=== PATIENT | female | born 1965 | race Caucasian/White ===

== ENCOUNTER → 2016-05-04 | Outpatient (CLI) | payer MEDICARE, MEDICAID ==
[~2016-05-04] MED LIST: ADVAIR IH; ALBUTEROL0.09 MG/A4 IH; MS CONTIN 330 MG/TAB PO; PERCOCET 325 MG1 TAB PO; PRILOSEC 20MG20 MG PO; SOMA350 MG PO; THEOPHYLLINE200 M3 PO; VALIUM10 MG PO; VITAMIN D50000 I1 PO
== END ==
LOC: RAD 16:11
DX: M25.511 Pain in right shoulder (principal); R76.8 Other specified abnormal immunological findings in serum

== ENCOUNTER → 2016-09-21 | Outpatient (CLI) | payer MEDICARE, MEDICAID ==
[2013-08-26 16:56] VITALS: BP 130/88
== END ==
LOC: LAB 15:07
DX: R76.8 Other specified abnormal immunological findings in serum (principal)

== ENCOUNTER → 2016-10-19 | Outpatient (CLI) | payer MEDICARE, MEDICAID ==
[2013-08-26 16:56] VITALS: BP 130/88
== END ==
LOC: LAB 16:24
DX: R76.8 Other specified abnormal immunological findings in serum (principal)

== ENCOUNTER 2016-12-11 18:40 | Observation (INO) | payer MEDICARE, MEDICAID ==
[~2016-12-11] VITALS: Ht 162.6 cm; Wt 67.0 kg
[2016-12-11] MEDS ORDERED: PERCOCET 325 MG1 TA5 PO (20:07)
[2016-12-11] MEDS ORDERED: MS CONTIN30 MG PO (20:09)
[2016-12-11] MEDS ORDERED: SOMA350 M1 PO (20:10)
[2016-12-11] MEDS ORDERED: VALIUM 10MG10 MG/TAB PO (20:11)
[2016-12-11] MEDS ORDERED: VITAMIN D50000 I2 PO (20:21)
[2016-12-11] MEDS ORDERED: CELEXA 20MG20 MG/TA1 PO (20:21)
[2016-12-11] MEDS ORDERED: CLARITIN 1010 MG/TAB PO (20:23)
[2016-12-11] MEDS ORDERED: QUALITY CHOICE325 MG PO (20:25)
[2016-12-11] MEDS ORDERED: RT ALBUTEROL CC18 GM IH (20:29)
[2016-12-11] MEDS ORDERED: COLACE100 M1 PO (20:36)
[2016-12-11] MEDS ORDERED: KEFLEX250 M1 PO (20:37)
[2016-12-11] MEDS ORDERED: LIDOCAINE HCL 330 M1 TP (20:52)
[2016-12-11 21:34] VITALS: BP 144/70
[2016-12-11 21:49] VITALS: BP 144/70
[2016-12-11 23:00] VITALS: BP 132/72
[2016-12-12 05:27] LABS: PH-URINE 7.5 (5.0 - 8.0); URINE APPEARANCE CLEAR; URINE BILIRUBIN NEGATIVE (NEGATIVE); URINE BLOOD NEGATIVE (NEGATIVE); URINE COLOR YELLOW; URINE GLUCOSE NEGATIVE (NEGATIVE); URINE KETONE NEGATIVE (NEGATIVE); URINE LEUKOCYTE ESTERASE 1+ (NEGATIVE); URINE NITRATE NEGATIVE (NEGATIVE); URINE PROTEIN(semi-quant) NEGATIVE (NEGATIVE); URINE UROBILINOGEN NORMAL (NORMAL)
[2016-12-12 06:23] VITALS: BP 128/70
[2016-12-12 08:56] LABS: EOS # 0.2 (0.04-0.40); HEMATOCRIT 38.5 % (37.0-47.0); HEMOGLOBIN 12.6 g/dL (12.5-16.0); LYMPH# 1.3 (1.50-4.00); MEAN CELL VOLUME 97 fl (78-100); MEAN CORPUSCULAR HEMOGLOBIN 32 pg (27-31); MEAN CORPUSCULAR HGB CONC 33 g/dL (33-37); MEAN PLATELET VOLUME 8.8 fl (7.4-10.4); MONO # 0.4 (0.20-0.80); NEU # 3.1 (1.40-6.50); PLATELET COUNT 285 K/mm3 (130-400); RED BLOOD COUNT 3.98 M/mm3 (4.10-5.30); RED CELL DISTRIBUTION WIDTH 12.7 % (11.5-14.5)
[2016-12-12 09:04] LABS: BUN/CREATININE RATIO 12.4 (6.0-26.0); CALCIUM 9.4 mg/dL (8.4-10.2); POTASSIUM 3.8 mmol/L (3.6-5.0); TOTAL BILIRUBIN 0.5 mg/dL (0.2-1.3); TOTAL PROTEIN 7.8 g/dL (6.3-8.2)
[2016-12-12 11:00] VITALS: BP 122/72
[2016-12-12 15:06] VITALS: BP 115/71
[2016-12-12] MEDS ORDERED: MACROBID 100 M100 MG PO (17:36)
[2016-12-12 18:31] VITALS: BP 117/74
== END 2016-12-12 19:42 | disposition home or self-care (01) ==
LOC: ED 18:40 → MED/SURG 19:51
PROVIDERS: Physician Assistant; ADMIT Nurse Practitioner Primary Care
DX: N99.89 Other postprocedural complications and disorders of genitourinary system (principal); R33.8 Other retention of urine; K59.00 Constipation, unspecified; G89.29 Other chronic pain; M54.9 Dorsalgia, unspecified; Z79.891 Long term (current) use of opiate analgesic; N39.0 Urinary tract infection, site not specified; G89.18 Other acute postprocedural pain; R10.2 Pelvic and perineal pain; Z90.710 Acquired absence of both cervix and uterus; F41.9 Anxiety disorder, unspecified; F32.9 Major depressive disorder, single episode, unspecified; F17.210 Nicotine dependence, cigarettes, uncomplicated
CPT/HCPCS: G0378

== ENCOUNTER 2016-12-28 23:03 | Emergency (ER) | payer MEDICARE, MEDICAID ==
[~2016-12-28] VITALS: Ht 160 cm; Wt 65.9 kg
[~2016-12-28 23:03] MED LIST changes: +CELEXA 20MG20 MG/TA1 PO; +CLARITIN 1010 MG/TAB PO; +COLACE100 M1 PO; +KEFLEX250 M1 PO; +LIDOCAINE HCL 330 M1 TP; +MACROBID 100 M100 MG PO; +MS CONTIN30 MG PO; +PERCOCET 325 MG1 TA5 PO; +QUALITY CHOICE325 MG PO; +RT ALBUTEROL CC18 GM IH; +SOMA350 M1 PO; +VALIUM 10MG10 MG/TAB PO; +VITAMIN D50000 I2 PO
[2016-12-29 00:30] LABS: EOS # 0.3 (0.04-0.40); HEMATOCRIT 35.7 % (37.0-47.0); LYMPH# 2.7 (1.50-4.00); MEAN CELL VOLUME 98 fl (78-100); MEAN CORPUSCULAR HEMOGLOBIN 33 pg (27-31); MEAN CORPUSCULAR HGB CONC 34 g/dL (33-37); MEAN PLATELET VOLUME 8.4 fl (7.4-10.4); MONO # 0.7 (0.20-0.80); NEU # 5.1 (1.40-6.50); PLATELET COUNT 288 K/mm3 (130-400); RED BLOOD COUNT 3.66 M/mm3 (4.10-5.30); RED CELL DISTRIBUTION WIDTH 13.3 % (11.5-14.5); WHITE BLOOD COUNT 8.7 K/mm3 (4.8-10.8)
[2016-12-29 00:41] LABS: ALBUMIN 3.6 g/dL (3.5-5.0); BUN/CREATININE RATIO 12.8 (6.0-26.0); CALCIUM 8.6 mg/dL (8.4-10.2); POTASSIUM 3.5 mmol/L (3.6-5.0); TOTAL BILIRUBIN 0.4 mg/dL (0.2-1.3); TOTAL PROTEIN 6.9 g/dL (6.3-8.2)
[2016-12-29 02:41] LABS: URINE APPEARANCE CLOUDY; URINE COLOR YELLOW
[2016-12-29 02:42] LABS: URINE BILIRUBIN NEGATIVE (NEGATIVE); URINE BLOOD 250 ery/uL (NEGATIVE); URINE GLUCOSE NEGATIVE (NEGATIVE); URINE KETONE NEGATIVE (NEGATIVE); URINE LEUKOCYTE ESTERASE 2+ (NEGATIVE); URINE NITRATE POSITIVE (NEGATIVE); URINE PROTEIN(semi-quant) NEGATIVE (NEGATIVE); URINE UROBILINOGEN NORMAL (NORMAL); URINE WBC >50 /hpf (0-3)
[2016-12-29] MEDS ORDERED: LEVAQUIN 5500 MG/TA1 PO (03:09)
[2016-12-29 04:00] VITALS: BP 104/82
== END 2016-12-29 04:00 | disposition home or self-care (01) ==
LOC: ED 23:03
PROVIDERS: Physician Assistant
DX: N39.0 Urinary tract infection, site not specified (principal); K59.00 Constipation, unspecified; G89.29 Other chronic pain; E87.1 Hypo-osmolality and hyponatremia; E87.6 Hypokalemia; Z88.6 Allergy status to analgesic agent; Z88.1 Allergy status to other antibiotic agents; Z88.2 Allergy status to sulfonamides; Z88.8 Allergy status to other drugs, medicaments and biological substances; Z86.19 Personal history of other infectious and parasitic diseases

== ENCOUNTER → 2017-04-05 | Outpatient (CLI) | payer MEDICARE, MEDICAID ==
[~2017-04-05] MED LIST changes: +LEVAQUIN 5500 MG/TA1 PO
[2017-04-05 15:58] LABS: EOS # 0.1 (0.04-0.40); EOS % 0.9 % (1.0-5.0); HEMATOCRIT 45.5 % (37.0-47.0); LYMPH# 2.3 (1.50-4.00); MEAN CELL VOLUME 94 fl (78-100); MEAN CORPUSCULAR HEMOGLOBIN 31 pg (27-31); MEAN CORPUSCULAR HGB CONC 33 g/dL (33-37); MEAN PLATELET VOLUME 8.8 fl (7.4-10.4); MONO # 0.5 (0.20-0.80); NEU # 4.8 (1.40-6.50); PLATELET COUNT 308 K/mm3 (130-400); RED BLOOD COUNT 4.84 M/mm3 (4.10-5.30); RED CELL DISTRIBUTION WIDTH 13.4 % (11.5-14.5); WHITE BLOOD COUNT 7.7 K/mm3 (4.8-10.8)
[2017-04-05 16:08] LABS: BUN/CREATININE RATIO 20.2 (6.0-26.0); POTASSIUM 4.1 mmol/L (3.6-5.0); TOTAL PROTEIN 8.6 g/dL (6.3-8.2)
[2017-04-05 16:18] LABS: ALBUMIN 4.5 g/dL (3.5-5.0); CALCIUM 9.5 mg/dL (8.4-10.2); TOTAL BILIRUBIN 0.2 mg/dL (0.2-1.3)
== END ==
LOC: LAB 15:43
PROVIDERS: Internal Medicine
DX: G43.709 Chronic migraine without aura, not intractable, without status migrainosus (principal); D50.8 Other iron deficiency anemias; E78.2 Mixed hyperlipidemia; M85.80 Other specified disorders of bone density and structure, unspecified site; Z88.1 Allergy status to other antibiotic agents; Z88.2 Allergy status to sulfonamides; Z88.8 Allergy status to other drugs, medicaments and biological substances

== ENCOUNTER → 2017-07-26 | Outpatient (CLI) | payer MEDICARE, MEDICAID | LOC: RAD 14:58 | DX: M19.042 Primary osteoarthritis, left hand (principal); Z98.890 Other specified postprocedural states ==

== ENCOUNTER → 2017-12-14 | Outpatient (CLI) | payer MEDICARE, MEDICAID ==
[2017-12-14 14:25] LABS: EOS # 0.1 (0.04-0.40); EOS % 1.2 % (1.0-5.0); HEMATOCRIT 44.1 % (37.0-47.0); HEMOGLOBIN 14.8 g/dL (12.5-16.0); MEAN CELL VOLUME 94 fl (78-100); MEAN CORPUSCULAR HEMOGLOBIN 32 pg (27-31); MEAN CORPUSCULAR HGB CONC 34 g/dL (33-37); MEAN PLATELET VOLUME 8.7 fl (7.4-10.4); MONO # 0.6 (0.20-0.80); NEU # 5.4 (1.40-6.50); PLATELET COUNT 321 K/mm3 (130-400); RED CELL DISTRIBUTION WIDTH 12.8 % (11.5-14.5); WHITE BLOOD COUNT 8.1 K/mm3 (4.8-10.8)
[2017-12-14 14:38] LABS: ALBUMIN 4.5 g/dL (3.5-5.0); CALCIUM 9.6 mg/dL (8.4-10.2); POTASSIUM 4.4 mmol/L (3.6-5.0); TOTAL BILIRUBIN 0.3 mg/dL (0.2-1.3); TOTAL PROTEIN 8.3 g/dL (6.3-8.2)
[2017-12-14 16:11] LABS: ERYTHROCYTE SEDIMENTATION RATE 5 mm/hr (0-30)
== END ==
LOC: LAB 14:06
PROVIDERS: Internal Medicine
DX: Z12.11 Encounter for screening for malignant neoplasm of colon (principal); D50.9 Iron deficiency anemia, unspecified; E78.2 Mixed hyperlipidemia; M85.80 Other specified disorders of bone density and structure, unspecified site; G43.909 Migraine, unspecified, not intractable, without status migrainosus; M79.671 Pain in right foot; R20.2 Paresthesia of skin

== ENCOUNTER → 2018-05-21 | Outpatient (CLI) | payer MEDICARE, MEDICAID ==
[2018-05-21 14:48] LABS: EOS # 0.2 (0.04-0.40); EOS % 2.3 % (1.0-5.0); HEMATOCRIT 47.1 % (37.0-47.0); HEMOGLOBIN 15.2 g/dL (12.5-16.0); LYMPH# 2.2 (1.50-4.00); MEAN CELL VOLUME 93 fl (78-100); MEAN CORPUSCULAR HEMOGLOBIN 30 pg (27-31); MEAN CORPUSCULAR HGB CONC 32 g/dL (33-37); MEAN PLATELET VOLUME 8.4 fl (7.4-10.4); MONO # 0.6 (0.20-0.80); NEU # 5.2 (1.40-6.50); PLATELET COUNT 333 K/mm3 (130-400); RED BLOOD COUNT 5.08 M/mm3 (4.10-5.30); RED CELL DISTRIBUTION WIDTH 13.3 % (11.5-14.5); WHITE BLOOD COUNT 8.2 K/mm3 (4.8-10.8)
[2018-05-21 15:07] LABS: ALBUMIN 4.7 g/dL (3.5-5.0); CALCIUM 9.3 mg/dL (8.4-10.2); POTASSIUM 4.3 mmol/L (3.6-5.0); TOTAL BILIRUBIN 0.3 mg/dL (0.2-1.3); TOTAL PROTEIN 8.7 g/dL (6.3-8.2)
[2018-05-21 15:30] LABS: PROTHROMBIN TIME 9.4 SECONDS (9.0-12.0)
== END ==
LOC: LAB 14:28
PROVIDERS: Physician Assistant
DX: Z12.11 Encounter for screening for malignant neoplasm of colon (principal); R74.8 Abnormal levels of other serum enzymes; K62.5 Hemorrhage of anus and rectum; B18.2 Chronic viral hepatitis C

== ENCOUNTER → 2018-07-26 | Outpatient (CLI) | payer MEDICARE, MEDICAID | LOC: RAD 15:23 | DX: Z12.31 Encounter for screening mammogram for malignant neoplasm of breast (principal); M19.032 Primary osteoarthritis, left wrist; M25.571 Pain in right ankle and joints of right foot ==

== ENCOUNTER → 2018-09-20 | Outpatient (CLI) | payer MEDICARE, MEDICAID ==
[2018-09-20 15:54] LABS: EOS # 0.1 (0.04-0.40); EOS % 1.1 % (1.0-5.0); HEMATOCRIT 43.9 % (37.0-47.0); HEMOGLOBIN 14.4 g/dL (12.5-16.0); LYMPH# 1.8 (1.50-4.00); MEAN CELL VOLUME 94 fl (78-100); MEAN CORPUSCULAR HEMOGLOBIN 31 pg (27-31); MEAN CORPUSCULAR HGB CONC 33 g/dL (33-37); MEAN PLATELET VOLUME 9.1 fl (7.4-10.4); MONO # 0.4 (0.20-0.80); PLATELET COUNT 273 K/mm3 (130-400); RED BLOOD COUNT 4.65 M/mm3 (4.10-5.30); RED CELL DISTRIBUTION WIDTH 14.1 % (11.5-14.5); WHITE BLOOD COUNT 7.2 K/mm3 (4.8-10.8)
[2018-09-20 15:55] LABS: ALBUMIN 4.5 g/dL (3.5-5.0); POTASSIUM 3.9 mmol/L (3.5-5.1)
[2018-09-20 15:57] LABS: CALCIUM 9.8 mg/dL (8.3-10.5)
[2018-09-20 15:58] LABS: TOTAL PROTEIN 8.9 g/dL (6.4-8.3)
[2018-09-20 16:00] LABS: TOTAL BILIRUBIN 0.2 mg/dL (0.2-1.2)
[2018-09-20 17:51] LABS: ERYTHROCYTE SEDIMENTATION RATE 6 mm/hr (0-30)
== END ==
LOC: RAD 14:51
PROVIDERS: Internal Medicine
DX: M25.511 Pain in right shoulder (principal); M79.671 Pain in right foot; G43.709 Chronic migraine without aura, not intractable, without status migrainosus; M85.80 Other specified disorders of bone density and structure, unspecified site; D50.8 Other iron deficiency anemias; R20.2 Paresthesia of skin; E78.2 Mixed hyperlipidemia

== ENCOUNTER → 2019-02-07 | Outpatient (CLI) | payer MEDICARE, MEDICAID ==
[2019-02-07 15:39] LABS: EOS # 0.3 (0.04-0.40); EOS % 3.1 % (1.0-5.0); HEMATOCRIT 45.1 % (37.0-47.0); HEMOGLOBIN 14.6 g/dL (12.5-16.0); LYMPH# 3.1 (1.50-4.00); MEAN CELL VOLUME 94 fl (78-100); MEAN CORPUSCULAR HEMOGLOBIN 31 pg (27-31); MEAN CORPUSCULAR HGB CONC 32 g/dL (33-37); MEAN PLATELET VOLUME 8.8 fl (7.4-10.4); MONO # 0.7 (0.20-0.80); PLATELET COUNT 365 K/mm3 (130-400); RED BLOOD COUNT 4.78 M/mm3 (4.10-5.30); RED CELL DISTRIBUTION WIDTH 12.9 % (11.5-14.5)
[2019-02-07 15:45] LABS: POTASSIUM 3.6 mmol/L (3.5-5.1)
[2019-02-07 15:46] LABS: ALBUMIN 4.4 g/dL (3.5-5.0)
[2019-02-07 15:47] LABS: CALCIUM 9.7 mg/dL (8.3-10.5)
[2019-02-07 15:48] LABS: TOTAL PROTEIN 7.9 g/dL (6.4-8.3)
[2019-02-07 15:50] LABS: TOTAL BILIRUBIN 0.3 mg/dL (0.2-1.2)
[2019-02-07 16:36] LABS: PROTHROMBIN TIME 9.6 SECONDS (9.0-12.0)
[2019-02-07 16:50] LABS: ERYTHROCYTE SEDIMENTATION RATE 8 mm/hr (0-30)
== END ==
LOC: LAB 14:52
PROVIDERS: Internal Medicine
DX: Z12.11 Encounter for screening for malignant neoplasm of colon (principal); G43.709 Chronic migraine without aura, not intractable, without status migrainosus; M85.80 Other specified disorders of bone density and structure, unspecified site; D50.8 Other iron deficiency anemias; B18.2 Chronic viral hepatitis C; E78.2 Mixed hyperlipidemia; M79.671 Pain in right foot; R20.2 Paresthesia of skin; R74.8 Abnormal levels of other serum enzymes

== ENCOUNTER → 2019-07-22 | Outpatient (CLI) | payer MEDICARE, MEDICAID | LOC: LAB 09:45 | DX: B18.2 Chronic viral hepatitis C (principal) ==

== ENCOUNTER → 2019-10-17 | Outpatient (CLI) | payer MEDICARE, MEDICAID ==
[2019-10-17 14:44] LABS: EOS # 0.1 (0.04-0.40); HEMATOCRIT 46.5 % (37.0-47.0); HEMOGLOBIN 15.1 g/dL (12.5-16.0); LYMPH# 2.1 (1.50-4.00); MEAN CELL VOLUME 93 fl (78-100); MEAN CORPUSCULAR HEMOGLOBIN 30 pg (27-31); MEAN CORPUSCULAR HGB CONC 33 g/dL (33-37); MEAN PLATELET VOLUME 8.9 fl (7.4-10.4); MONO # 0.6 (0.20-0.80); NEU # 4.1 (1.40-6.50); PLATELET COUNT 305 K/mm3 (130-400); RED BLOOD COUNT 5.02 M/mm3 (4.10-5.30); RED CELL DISTRIBUTION WIDTH 13.7 % (11.5-14.5); WHITE BLOOD COUNT 6.9 K/mm3 (4.8-10.8)
[2019-10-17 15:02] LABS: POTASSIUM 3.7 mmol/L (3.5-5.1)
[2019-10-17 15:03] LABS: ALBUMIN 4.5 g/dL (3.5-5.0)
[2019-10-17 15:04] LABS: CALCIUM 9.6 mg/dL (8.3-10.5)
[2019-10-17 15:05] LABS: TOTAL PROTEIN 7.9 g/dL (6.4-8.3)
[2019-10-17 15:10] LABS: TOTAL BILIRUBIN 0.1 mg/dL (0.2-1.2)
== END ==
LOC: LAB 14:30
PROVIDERS: Internal Medicine
DX: G43.709 Chronic migraine without aura, not intractable, without status migrainosus (principal); D50.8 Other iron deficiency anemias; E78.2 Mixed hyperlipidemia; M85.80 Other specified disorders of bone density and structure, unspecified site; R20.2 Paresthesia of skin

== ENCOUNTER → 2020-07-23 | Outpatient (CLI) | payer MEDICARE, MEDICAID ==
[2020-07-23 11:58] LABS: POTASSIUM 4.2 mmol/L (3.5-5.1)
[2020-07-23 12:00] LABS: CALCIUM 8.8 mg/dL (8.3-10.5)
[2020-07-23 12:01] LABS: TOTAL PROTEIN 7.2 g/dL (6.4-8.3)
[2020-07-23 12:03] LABS: TOTAL BILIRUBIN 0.2 mg/dL (0.2-1.2)
== END ==
LOC: LAB 11:35
PROVIDERS: Internal Medicine
DX: E78.2 Mixed hyperlipidemia (principal)